=== PATIENT | male | born 1990 | race Caucasian/White ===

== ENCOUNTER 2016-12-15 02:57 | Emergency (ER) | payer SELFPAY ==
[~2016-12-15] VITALS: Ht 157.5 cm; Wt 80.5 kg
[2016-12-15 03:07] VITALS: Ht 157.5 cm; Wt 80.5 kg
[2016-12-15] MEDS ORDERED: ALPR0.5T PO (04:53)
--- NOTE | 2016-12-15 04:59 | ERD ---
ER Documentation Chief Complaint Date/Time DATE: 12/15/16 TIME: 04:57 Chief Complaint Insomia X2 nights. Pt reports having some HTN issue HPI 26-year-old male with insomnia for the last 2 nights. Having no other symptoms at this time. He believes he is giving too much attention to work and is getting stressed out about it. Is hoping to get something to help him sleep. states that she is getting taken to his primary care on Friday to get a checkup. ROS All systems reviewed and are negative except as per history of present illness. Medications Home Meds Active Scripts Alprazolam* (Xanax*) 0.5 Mg Tab, 0.5 MG PO QHS Y for INSOMNIA, #6 TAB Prov:KEEGAN HELM DO 12/15/16 Allergies Allergies: Coded Allergies: No Known Allergy (Unverified , 12/15/16) PMhx/Soc Medical and Surgical Hx: pt denies Medical Hx, pt denies Surgical Hx History of Surgery: No Anesthesia Reaction: No Hx Neurological Disorder: No Hx Respiratory Disorders: No Hx Cardiac Disorders: No Hx Psychiatric Problems: Yes (SCHIZOPHRENIA) Hx Alcohol Use: No Hx Substance Use: No Hx Tobacco Use: No Smoking Status: Never smoker Physical Exam Vitals Vital Signs Date Time Temp Pulse Resp B/P Pulse Ox O2 Delivery O2 Flow Rate FiO2 12/15/16 03:07 99.1 105 20 136/79 97 Physical Exam Const: [] No distress Head: Atraumatic Eyes: Normal Conjunctiva Neur: Awake and alert and oriented 3, no focal deficits Psych: Normal Mood and Affect Procedures/MDM 26-year-old male with isolated insomnia secondary to work stress. Calmly asking for medication to help. No neurological symptoms. I am going to discharge him with 6 Xanax pills 0.5. He is going to follow-up his primary care doctor on Friday. Departure Diagnosis: Primary Impression: Insomnia Condition: Stable Patient Instructions: Treating Insomnia Additional Instructions: Call your primary care doctor TOMORROW for an appointment during the next 1-2 days.See the doctor sooner or return here if your condition worsens before your appointment time. KEEGAN HELM DO December 15, 2016 04:59
[2016-12-15 05:26] VITALS: PULSE 88; RESP 26; TEMP 98.8
== END 2016-12-15 05:00 | disposition home or self-care (01) ==
LOC: FTE 02:57
DX: G47.00 Insomnia, unspecified (principal)
CPT/HCPCS: 99283

== ENCOUNTER 2017-02-10 11:48 | Emergency (ER) | payer MEDICAID ==
[~2017-02-10] VITALS: Wt 81.5 kg
[~2017-02-10 11:48] MED LIST: ALPR0.5T PO
[2017-02-10] MEDS ORDERED: SOD CHLORIDE 0.9% 1,000 ML IV STA (12:18)
--- NOTE | 2017-02-10 12:43 | ERD ---
ER Documentation Chief Complaint Date/Time DATE: 02/10/17 TIME: 12:40 Chief Complaint SENT BY PMD FOR LAB WORK DUE TO POSSIBLY HIGH CK. PT HAS NO PHYSICAL CMPLNT HPI 26-year-old with a history of schizophrenia comes emergency department for elevated CPK in the 3,000's. Patient states that he was seen by psychiatrist on Friday and received a phone call today that his creatinine kinase came back at over 3000. Patient's medications are for psychiatric care as well as hypertension, he takes Cogentin, lorazepam, Xanax, Benadryl, senna, Colace, hydrochlorothiazide as well as fludrocortisone. He states that he did lift weights last week. He denies abdominal pain, chest pain, extremity pain. Denies myalgias or fevers or chills. He denies nausea, vomiting or diarrhea. He denies hematuria. ROS All systems reviewed and are negative except as per history of present illness. Medications Home Meds Active Scripts Alprazolam* (Xanax*) 0.5 Mg Tab, 0.5 MG PO QHS Y for INSOMNIA, #6 TAB Prov:KEEGAN HELM 12/15/16 Allergies Allergies: Coded Allergies: No Known Allergy (Unverified , 12/15/16) PMhx/Soc History of Surgery: No Anesthesia Reaction: No Hx Neurological Disorder: No Hx Cardiac Disorders: No Hx Psychiatric Problems: Yes (Schizophrenia) Hx Miscellaneous Medical Probl: No Hx Alcohol Use: No Hx Substance Use: No Hx Tobacco Use: No Smoking Status: Never smoker Physical Exam Vitals Vital Signs Date Time Temp Pulse Resp B/P Pulse Ox O2 Delivery O2 Flow Rate FiO2 02/10/17 11:50 98.6 84 20 127/71 98 Physical Exam General: Well-developed, well-nourished. The patient appears in no acute distress. HEENT: Head is normocephalic, atraumatic. No scleral icterus. Neck: Supple. Nontender. Lungs: Clear to auscultation. Normal air movement. Heart: Regular rate and rhythm. S1 and S2 are normal. No murmurs, gallops, or rubs. Abdomen: Soft, nontender, nondistended. Bowel sounds are normoactive. Extremities: No clubbing or cyanosis. Normal pulses. Moving extremities x 4. No weakness. Neurologic: Alert and oriented 3. No focal deficits. Skin: Normal turgor. No rash or lesions. Result Diagram: 02/10/17 1238 02/10/17 1238 Results 24 hrs Laboratory Tests Test 02/10/17 12:38 02/10/17 12:50 White Blood Count 9.910^3/ul Red Blood Count 4.4810^6/ul Hemoglobin 14.4g/dl Hematocrit 42.0% Mean Corpuscular Volume 93.8fl Mean Corpuscular Hemoglobin 32.1pg Mean Corpuscular Hemoglobin Concent 34.3g/dl Red Cell Distribution Width 12.9% Platelet Count 62136^3/UL Mean Platelet Volume 10.9fl Neutrophils % 64.7% Lymphocytes % 22.1% Monocytes % 9.5% Eosinophils % 2.7% Basophils % 0.5% Nucleated Red Blood Cells % 0.0/100WBC Neutrophils # 6.410^3/ul Lymphocytes # 2.210^3/ul Monocytes # 0.910^3/ul Eosinophils # 0.310^3/ul Basophils # 0.110^3/ul Nucleated Red Blood Cells # 0.010^3/ul Sodium Level 144mmol/L Potassium Level 5.5mmol/L Chloride Level 107mmol/L Carbon Dioxide Level 21mmol/L Anion Gap 22 Blood Urea Nitrogen 11mg/dl Creatinine 0.97mg/dl Glucose Level 81mg/dl Calcium Level 9.6mg/dl Total Bilirubin 0.3mg/dl Direct Bilirubin 0.00mg/dl Indirect Bilirubin 0.3mg/dl Aspartate Amino Transf (AST/SGOT) 63IU/L Alanine Aminotransferase (ALT/SGPT) 56IU/L Alkaline Phosphatase 77IU/L Creatine Kinase 583IU/L Total Protein 8.2g/dl Albumin 4.5g/dl Globulin 3.70g/dl Albumin/Globulin Ratio 1.21 Urine Color COLORLESS Urine Clarity CLEAR Urine pH 6.0 Urine Specific [place] 1.003 Urine Ketones NEGATIVEmg/dL Urine Nitrite NEGATIVEmg/dL Urine Bilirubin NEGATIVEmg/dL Urine Urobilinogen NEGATIVEmg/dL Urine Leukocyte Esterase NEGATIVELeu/ul Urine Hemoglobin NEGATIVEmg/dL Urine Glucose NEGATIVEmg/dL Urine Total Protein NEGATIVEmg/dl Current Medications Medications (Trade) Dose Ordered Sig/Arnaud Route PRN Reason Start Time Stop Time Status Last Admin Dose Admin Sodium Chloride (NS) 1,000 ml @ 1,000 mls/hr Q1H STAT IV 02/10/17 12:18 02/10/17 13:17 DC 02/10/17 12:35 Procedures/MDM ED course: Patient an IV line established, blood was obtained, he was given a fluid bolus of normal saline 1 L. 12-lead EKG(interpreted by supervising physician): Dr Garcia Rate/Rhythm: Normal Sinus Rhythm, rate of 86 QRS, ST, T-waves: No changes consistent w/ acute ischemia, no intervals, no dysrhythmias, no ectopy Impression: No evidence of ischemia or arrhythmia MDM: 26 yo male comes in with an elevated creatinine kinase, CK today is approximately 580, no evidence of renal insufficiency. Creatinine was 0.97. Patient presents with mild rhabdomyolysis. He is asymptomatic at this time. Other differentials include renal failure, renal insufficiency, rhabdomyolysis, myocardial infarction, myositis, pneumonitis. Labs at this time do not show any emergent signs or conditions. Potassium was elevated at 5.5, but no EKG findings. This was discussed with my attending physician who advised to treat with Kayexalate for 3 days. Departure Diagnosis: Primary Impression: Encounter for laboratory test Additional Impressions: Elevated creatine kinase Hyperkalemia Condition: DERIC Clancy PA-C Feb 10, 2017 12:42
[2017-02-10 12:51] LABS: ADD SCAN DIFF NO
[2017-02-10 12:52] LABS: BASOPHIL # 0.1 10^3/ul (0.0-0.1); BASOPHILS % 0.5 % (0.0-2.0); EOSINOPHILS # 0.3 10^3/ul (0.0-0.5); EOSINOPHILS % 2.7 % (0.0-7.0); HEMOGLOBIN 14.4 g/dl (14.0-18.0); LYMPHOCYTES # 2.2 10^3/ul (0.8-2.9); LYMPHOCYTES % 22.1 % (15.0-51.0); MEAN CORPUSCULAR HEMOGLOBIN 32.1 pg (29.0-33.0); MEAN CORPUSCULAR HGB CONC 34.3 g/dl (32.0-37.0); MEAN CORPUSCULAR VOLUME 93.8 fl (82.0-101.0); MEAN PLATELET VOLUME 10.9 fl (7.4-10.4); MONOCYTE # 0.9 10^3/ul (0.3-0.9); MONOCYTES % 9.5 % (0.0-11.0); NEUTROPHIL # 6.4 10^3/ul (1.6-7.5); NEUTROPHILS % 64.7 % (39.0-77.0); PLATELET COUNT 263 10^3/UL (140-415); RED BLOOD COUNT 4.48 10^6/ul (4.70-6.10); RED CELL DISTRIBUTION WIDTH 12.9 % (11.5-14.5); WHITE BLOOD COUNT 9.9 10^3/ul (4.8-10.8)
[2017-02-10 13:06] LABS: ADD UMIC NO; UR ASCORBIC ACID NEGATIVE (NEGATIVE); UR BILIRUBIN (Dip) NEGATIVE (NEGATIVE); UR BLOOD (Dip) NEGATIVE (NEGATIVE); UR CLARITY CLEAR (CLEAR); UR COLOR COLORLESS (YELLOW); UR GLUCOSE (Dip) NEGATIVE (NEGATIVE); UR KETONES (Dip) NEGATIVE (NEGATIVE); UR LEUKOCYTE ESTERASE (Dip) NEGATIVE Leu/ul (NEGATIVE); UR NITRITE (Dip) NEGATIVE (NEGATIVE); UR SPECIFIC GRAVITY (Dip) 1.003 (1.003-1.030); UR TOTAL PROTEIN (Dip) NEGATIVE (NEGATIVE); UR UROBILINOGEN (Dip) NEGATIVE (NEGATIVE)
[2017-02-10 13:15] LABS: ALBUMIN 4.5 g/dl (3.3-4.9); ALBUMIN/GLOBULIN RATIO 1.21; BILIRUBIN,INDIRECT 0.3 mg/dl (0-1.1); BILIRUBIN,TOTAL 0.3 mg/dl (0.2-1.3); CALCIUM 9.6 mg/dl (8.4-10.2); CREATININE 0.97 mg/dl (0.61-1.24); POTASSIUM 5.5 mmol/L (3.5-5.1); TOTAL PROTEIN 8.2 g/dl (6.1-8.1)
[2017-02-10] MEDS ORDERED: SODI15OR8 PO (14:02)
== END 2017-02-10 14:04 | disposition home or self-care (01) ==
LOC: FTE 11:48
DX: Z00.01 Encounter for general adult medical examination with abnormal findings (principal); E87.5 Hyperkalemia
CPT/HCPCS: 80053; 81003; 82550; 85025; 93005; J7030; 36415